=== PATIENT | female | born 1980 | race Caucasian/White ===

== ENCOUNTER 2016-11-24 20:34 | Inpatient (IN) | payer SELFPAY ==
[~2016-11-24] VITALS: Ht 152.4 cm; Wt 51.8 kg
[~2016-11-24 20:34] MED LIST: POTASSIUM CHLORIDE 20 MEQ ER TABLET PO ONE; QUET200T PO
[2016-11-24] MEDS ORDERED: HALOPERIDOL 5 MG TABLET PO PRN (22:30)
[2016-11-24 23:05] LABS: BASOPHILS % (AUTO) 0.4 % (0.0-2.0); EOSINOPHILS % (AUTO) 0.9 % (1.0-6.0); HEMOGLOBIN 11.3 g/dL (12.0-16.0); LYMPHOCYTES # (AUTO) 1.3 K/uL (1.0-4.8); LYMPHOCYTES % (AUTO) 22.8 % (22.0-44.0); MEAN CORPUSCULAR HGB CONC 32.3 G/dL (31.0-37.0); MEAN CORPUSCULAR VOLUME 90 fL (80-100); MONOCYTES # (AUTO) 0.3 K/uL (0.1-1.0); MONOCYTES % (AUTO) 5.6 % (2.0-9.0); NEUTROPHILS # (AUTO) 4.1 K/uL (1.8-7.7); NEUTROPHILS % (AUTO) 70.3 % (40.0-70.0); PLATELET COUNT (AUTO) 225 K/uL (150-450); RED BLOOD CELL COUNT(AUTO) 3.91 MIL/uL (4.00-5.20); RED CELL DISTRIBUTION WIDTH 13.1 % (11.5-14.5); WHITE BLOOD COUNT (AUTO) 5.8 K/uL (4.5-11.0)
[2016-11-24 23:15] LABS: ANION GAP 9 mmol/L (8-16); CALCIUM, TOTAL 8.3 mg/dL (8.8-10.5); CARBON DIOXIDE 27 mmol/L (22-29); CHLORIDE 103 mmol/L (98-107); CREATININE 0.73 mg/dL (0.60-1.30); GLOMERULAR FILTR. RATE CALC > 60 mL/min (>60); POTASSIUM 3.2 mmol/L (3.5-5.1); SODIUM SERUM 139 mmol/L (136-145); UREA NITROGEN, BLOOD 12 mg/dL (7-18)
[2016-11-24 23:21] LABS: ALANINE AMINOTRANSFERASE 24 U/L (12-78); ALBUMIN 3.3 g/dL (3.4-5.0); ASPARTATE AMINOTRANSFERASE 21 U/L (15-37); BILIRUBIN,TOTAL 0.4 mg/dL (0.1-1.0); TOTAL PROTEIN, SERUM 6.3 g/dL (6.4-8.2)
[2016-11-24] MEDS ORDERED: POTASSIUM CHLORIDE 20 MEQ ER TABLET PO ONE (23:45)
[2016-11-25 01:35] VITALS: BP 104/68
[2016-11-25] MEDS: QUEtiapine FUMARATE 200 MG TABLET PO SCH (20:34)
[2016-11-25] MEDS ORDERED: IBUPROFEN 400 MG TABLET PO PRN (21:00)
[2016-11-25] MEDS ORDERED: ACETAMINOPHEN 325 MG TABLET PO PRN (21:00)
[2016-11-26] MEDS: ZOLPIDEM TARTRATE 10 MG TABLET PO PRN (00:50)
[2016-11-26] MEDS: FERROUS SULFATE 325 MG EC TABLET PO SCH ×2 (06:53→18:00)
[2016-11-26 07:05] LABS: HEMOGLOBIN A1C 5.5 % (4.5-6.2)
[2016-11-26 07:14] LABS: ANION GAP 7 mmol/L (8-16); CALCIUM, TOTAL 8.2 mg/dL (8.8-10.5); CARBON DIOXIDE 29 mmol/L (22-29); CHLORIDE 105 mmol/L (98-107); CHOL/HDL RATIO 1.9 (3.9-5.7); CREATININE 0.77 mg/dL (0.60-1.30); GLOMERULAR FILTR. RATE CALC > 60 mL/min (>60); POTASSIUM 3.9 mmol/L (3.5-5.1); SODIUM SERUM 141 mmol/L (136-145); THYROID STIMULATING HORMONE 0.48 uIU/mL (0.36-3.74); UREA NITROGEN, BLOOD 20 mg/dL (7-18)
[2016-11-26 08:55] VITALS: BP 90/53
[2016-11-26] MEDS ORDERED: LITHIUM CARBONATE 300 MG CAPSULE PO SCH (09:00)
[2016-11-26 10:13] LABS: APPEARANCE,URINE CLOUDY (CLEAR); GLUCOSE, URINE (UA) NEGATIVE (NEGATIVE); KETONES,URINE NEGATIVE (NEGATIVE); LEUKOCYTE ESTERASE ,URINE MODERATE (NEGATIVE); OCCULT BLOOD,URINE NEGATIVE (NEGATIVE); PH,URINE 5.5 (5.0-8.0); PROTEIN,URINE NEGATIVE (NEGATIVE)
[2016-11-26 10:25] LABS: ADD UA MICROSCOPIC YES
[2016-11-26 10:26] LABS: RBC,URINE None Seen /HPF (0-2)
[2016-11-26 10:27] LABS: CALCIUM OXALATE CRYSTALS,UR Many /LPF (None Seen); SQUAMOUS EPITHELIAL CELL,UR Many /LPF (None Seen); WBC,URINE 26-50 /HPF (0-5)
[2016-11-26 17:02] VITALS: BP 101/60
[2016-11-26] MEDS: QUEtiapine FUMARATE 200 MG TABLET PO SCH (20:29)
[2016-11-27] MEDS: FERROUS SULFATE 325 MG EC TABLET PO SCH ×2 (06:58→17:05)
[2016-11-27 08:24] VITALS: BP 98/51
[2016-11-27] MEDS: LORazepam 2 MG TABLET PO PRN (17:07)
[2016-11-27] MEDS: QUEtiapine FUMARATE 200 MG TABLET PO SCH (21:15)
[2016-11-27 21:27] VITALS: BP 97/59
[2016-11-28 00:18] VITALS: BP 100/68
[2016-11-28] MEDS: LORazepam 2 MG TABLET PO PRN ×3 (00:21→17:19)
[2016-11-28] MEDS: FERROUS SULFATE 325 MG EC TABLET PO SCH ×2 (06:32→16:40)
[2016-11-28 08:52] VITALS: BP 90/60
[2016-11-28 18:21] VITALS: BP 115/84
[2016-11-28] MEDS: ZOLPIDEM TARTRATE 10 MG TABLET PO PRN (20:25)
[2016-11-28] MEDS: QUEtiapine FUMARATE 200 MG TABLET PO SCH (20:25)
[2016-11-29] MEDS: FERROUS SULFATE 325 MG EC TABLET PO SCH ×2 (06:42→17:45)
[2016-11-29 08:30] VITALS: BP 84/56
[2016-11-29] MEDS: LORazepam 2 MG TABLET PO PRN (11:39)
[2016-11-29 19:26] VITALS: BP 107/67
[2016-11-29] MEDS: QUEtiapine FUMARATE 200 MG TABLET PO SCH (20:09)
[2016-11-30] MEDS: FERROUS SULFATE 325 MG EC TABLET PO SCH (06:44)
[2016-11-30 08:00] VITALS: BP 97/61
[2016-11-30] MEDS: LORazepam 2 MG TABLET PO PRN (13:01)
[2016-11-30] MEDS ORDERED: FERR-89 PO (13:11)
== END 2016-11-30 14:15 | disposition home or self-care (01) | DRG 885 ==
LOC: EMS 20:35 → 3EI 22:23
PROVIDERS: ADMIT Psychiatry & Neurology Psychiatry; ATTEND Psychiatry & Neurology Psychiatry
DX: F20.0 Paranoid schizophrenia (principal); R45.851 Suicidal ideations; F41.9 Anxiety disorder, unspecified; F19.10 Other psychoactive substance abuse, uncomplicated; F99 Mental disorder, not otherwise specified; F15.90 Other stimulant use, unspecified, uncomplicated; D64.9 Anemia, unspecified; E87.6 Hypokalemia; Z59.0 Homelessness; Z75.8 Other problems related to medical facilities and other health care; Z79.899 Other long term (current) drug therapy; Z71.51 Drug abuse counseling and surveillance of drug abuser
CPT/HCPCS: 80307; 83036; 84443; 87086; 99285; G0480

== ENCOUNTER 2018-10-11 14:54 | Inpatient (IN) | payer SELFPAY ==
[~2018-10-11] VITALS: Ht 154.9 cm; Wt 119.9 kg
[~2018-10-11 14:54] MED LIST changes: +FERR-89 PO; -POTASSIUM CHLORIDE 20 MEQ ER TABLET PO ONE
[2018-10-11 18:27] LABS: BASOPHILS % (AUTO) 0.9 % (0.0-2.0); EOSINOPHILS % (AUTO) 2.6 % (1.0-6.0); HEMATOCRIT 37.7 % (36-46); HEMOGLOBIN 12.8 g/dL (12.0-16.0); LYMPHOCYTES # (AUTO) 1.9 K/uL (1.0-4.8); LYMPHOCYTES % (AUTO) 31.3 % (22.0-44.0); MEAN CORPUSCULAR HEMOGLOBIN 29.5 pg (26.0-34.0); MEAN CORPUSCULAR HGB CONC 34.1 G/dL (31.0-37.0); MEAN CORPUSCULAR VOLUME 87 fL (80-100); MONOCYTES # (AUTO) 0.4 K/uL (0.1-1.0); MONOCYTES % (AUTO) 6.6 % (2.0-9.0); NEUTROPHILS # (AUTO) 3.5 K/uL (1.8-7.7); NEUTROPHILS % (AUTO) 58.6 % (40.0-70.0); PLATELET COUNT (AUTO) 288 K/uL (150-450); RED BLOOD CELL COUNT(AUTO) 4.35 MIL/uL (4.00-5.20); RED CELL DISTRIBUTION WIDTH 12.9 % (11.5-14.5)
[2018-10-11 18:48] LABS: AMPHET/METH SCREEN,URINE POSITIVE (NEGATIVE); BARBITURATE SCREEN, URINE NEGATIVE (NEGATIVE); BENZODIAZEPINES SCREEN,URINE NEGATIVE (NEGATIVE); CANNABINOID SCREEN,URINE NEGATIVE (NEGATIVE); COCAINE SCREEN,URINE NEGATIVE (NEGATIVE); METHADONE SCREEN, URINE NEGATIVE (NEGATIVE); OPIATE SCREEN,URINE NEGATIVE (NEGATIVE)
[2018-10-11 18:50] LABS: ALANINE AMINOTRANSFERASE 21 U/L (12-78); ALBUMIN 3.4 g/dL (3.4-5.0); ALKALINE PHOSPHATASE 61 U/L (46-116); ANION GAP 9 mmol/L (8-16); ASPARTATE AMINOTRANSFERASE 20 U/L (15-37); BILIRUBIN,TOTAL 0.5 mg/dL (0.1-1.0); CALCIUM, TOTAL 9.2 mg/dL (8.8-10.5); CARBON DIOXIDE 26 mmol/L (22-29); CHLORIDE 101 mmol/L (98-107); CREATININE 0.67 mg/dL (0.60-1.30); GLOMERULAR FILTR. RATE CALC > 60 mL/min (>60); GLUCOSE,RANDOM 98 mg/dL (70-110); HCG,QUANTITATIVE < 1 mIU/mL (0-6); POTASSIUM 3.9 mmol/L (3.5-5.1); SODIUM SERUM 136 mmol/L (136-145); TOTAL PROTEIN, SERUM 7.5 g/dL (6.4-8.2)
[2018-10-11 18:51] LABS: PHENCYCLIDINE SCREEN,URINE NEGATIVE (NEGATIVE)
[2018-10-11 19:04] LABS: UREA NITROGEN, BLOOD 17 mg/dL (7-18)
[2018-10-11] MEDS ORDERED: LORazepam 2 MG TABLET PO PRN (19:45)
[2018-10-11] MEDS ORDERED: ZOLPIDEM TARTRATE 10 MG TABLET PO PRN (19:45)
[2018-10-11] MEDS ORDERED: HALOPERIDOL 5 MG TABLET PO PRN (19:45)
[2018-10-11 21:08] LABS: CHOL/HDL RATIO 2.1 (3.9-5.7); CHOLESTEROL 174 mg/dL (131-200); FREE T4 (FREE THYROXINE) 1.24 ng/dL (0.76-1.46); HDL CHOLESTEROL 81 mg/dL (40-60); LDL CHOL (CALC.) 84 mg/dL (0-130); TRIGLYCERIDES 44 mg/dL (15-150)
[2018-10-11 21:15] LABS: HEMOGLOBIN A1C 5.8 % (4.5-6.2)
[2018-10-12 00:11] VITALS: BP 92/55
[2018-10-12 00:41] VITALS: BP 92/55
[2018-10-12 02:54] VITALS: BP 92/55
[2018-10-12 05:39] VITALS: BP 99/51
[2018-10-12] MEDS ORDERED: MAG HYDROX/AL HYDROX/SIMETH ES 30 ML SUSPENSION UDCUP PO PRN (06:00)
[2018-10-12] MEDS ORDERED: NICOTINE 14 MG/24 HOUR PATCH TD PRN (06:00)
[2018-10-12] MEDS ORDERED: MAGNESIUM HYDROXIDE SUSPENSION 30 ML UDCUP PO PRN (06:00)
[2018-10-12] MEDS ORDERED: PETROLATUM,WHITE 71 GM JELLY TP PRN (06:00)
[2018-10-12] MEDS ORDERED: IBUPROFEN 400 MG TABLET PO PRN (06:00)
[2018-10-12] MEDS ORDERED: ALBUTEROL SULFATE HFA 90 MCG/PUFF 8 GM INHALER IH PRN (06:00)
[2018-10-12] MEDS ORDERED: ONDANSETRON HCL 4 MG TABLET PO PRN (06:00)
[2018-10-12] MEDS ORDERED: ACETAMINOPHEN 325 MG TABLET PO PRN (06:00)
[2018-10-12] MEDS ORDERED: CloNIDine HCL 0.1 MG TABLET PO PRN (06:00)
[2018-10-12] MEDS ORDERED: DOCUSATE SODIUM 100 MG CAPSULE PO PRN (06:00)
[2018-10-12] MEDS ORDERED: LOPERAMIDE HCL 2 MG CAPSULE PO PRN (06:00)
[2018-10-12] MEDS ORDERED: GuaiFENesin/D-METHORPHAN [SUGAR-FREE] 200-20MG/10 ML SYRUP UDCUP PO PRN (06:00)
== END 2018-10-12 11:10 | disposition short-term general hospital (02) | DRG 885 ==
LOC: EMS 14:55 → B2S 20:30
PROVIDERS: ADMIT Psychiatry & Neurology Psychiatry; ATTEND Psychiatry & Neurology Psychiatry
DX: F25.0 Schizoaffective disorder, bipolar type (principal); G47.00 Insomnia, unspecified; Z59.0 Homelessness; F17.210 Nicotine dependence, cigarettes, uncomplicated; F15.10 Other stimulant abuse, uncomplicated; F41.9 Anxiety disorder, unspecified; Z79.899 Other long term (current) drug therapy; Z71.51 Drug abuse counseling and surveillance of drug abuser
CPT/HCPCS: 83036; 84439; 84443; 99406; G0480

== ENCOUNTER 2022-02-23 14:00 | Emergency (ER) | payer MEDICAID ==
[~2022-02-23] VITALS: Ht 157.5 cm; Wt 95.5 kg
[2022-02-23 14:03] VITALS: BP 119/67
[2022-02-23] MEDS ORDERED: PALI1.5T7 PO (14:16)
[2022-02-23] MEDS ORDERED: LURA20TA PO (14:16)
[2022-02-23] MEDS ORDERED: GABA-1181 PO (14:16)
[2022-02-23] MEDS ORDERED: ATOR10TA84 PO (14:16)
[2022-02-23] MEDS ORDERED: IBUP-2070 PO (15:29)
[2022-02-23] MEDS ORDERED: PENI500T2 PO (15:30)
[2022-02-23] MEDS ORDERED: TRAM50TA4 PO (15:31)
== END 2022-02-23 16:22 | disposition home or self-care (01) ==
LOC: EMS 14:00
DX: K02.9 Dental caries, unspecified (principal); E78.00 Pure hypercholesterolemia, unspecified; F41.9 Anxiety disorder, unspecified; F32.9 Major depressive disorder, single episode, unspecified; F10.20 Alcohol dependence, uncomplicated; F15.10 Other stimulant abuse, uncomplicated; F17.210 Nicotine dependence, cigarettes, uncomplicated
CPT/HCPCS: 99283